=== PATIENT | male | born 1970 | race Hispanic/Latino ===

== ENCOUNTER 2025-05-07 21:01 | Emergency (ER) | payer SELFPAY ==
[~2025-05-07] VITALS: Ht 160 cm; Wt 69.9 kg
[2025-05-07 21:17] VITALS: BP 134/81; PULSE 84; RESP 18; TEMP 98.5; O2SAT 100
--- NOTE | 2025-05-07 23:09 | ERN ---
ED Note History of Present Illness Stated Complaint: C/O HERNIA PROBLEM Chief Complaint: Abdominal Pain Time Seen by MD: 21:19 Time Seen by Midlevel: 21:20 Dictation: 55-year-old male who presents to the emergency department due to reported having history of an umbilical hernia that upon occasions gives him some discomfort. Earlier today, he felt like it was being enlarged. She states that as a 1 hour it went down. Currently, he denies having any fever, chills, nausea, vomiting, abdominal pain or constipation. The patient states that his last bowel movement was 1 hour prior to arrival. Upon initial evaluation, the patient presents in no acute distress. 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: None Past Medical History Past Medical History: Diabetes-Type II, Other Additional Past Medical Hx: HERNIA Surgical History: None Review of System Dictation Constitutional: Negative for fever,chills, and weight loss Eyes: Negative for injury, pain,redness, and discharge ENT: Negative for injury,pain or swelling Cardiovascular: Negative for chest pain, palpitations, and edema Respiratory: Negative for shortness of breath, cough, and wheezing, Abdomen/GI: Negative for abdominal pain, nausea, vomiting, diarrhea, and constipation Back: Negative for injury and pain : Negative for injury, bleeding and discharge MS/Extremity: Negative for injury and deformity Skin: Negative for rash, and discoloration Neuro: Negative for headache, weakness, numbness, tingling, and seizure Psych: Negative for suicide ideation, homicidal ideation, and hallucinations Initial Vital Sign VS Vital Signs Date Time Temp Pulse Resp B/P (MAP) Pulse Ox O2 Delivery O2 Flow Rate FiO2 05/07/25 21:03 98.1 87 20 136/79 98 Room Air 05/07/25 21:17 0 21 Physical Exam Dictation General: awake, alert, NAD Head/Face: Normocephalic, atraumatic Eyes: PERRL, EOMI ENT: Oral mucosa moist Neck: Trachea midline, supple Cardiovascular: RRR, no edema Respiratory: Symmetrical, non-labored Abdomen: Soft, non-tender, non-distended, no guarding, Skin: Warm, dry, good turgor, no rash MS/Extremity: Pulses equal, no cyanosis, neurovascular intact, FROM Neuro: COAx4, GCS 15, steady gait, Psych: Normal behavior, mood, and affect normal ED Course ED Course Vital Signs Date Time Temp Pulse Resp B/P (MAP) Pulse Ox O2 Delivery O2 Flow Rate FiO2 05/07/25 21:17 98.4 84 18 134/81 100 Room Air* 0 21 05/07/25 21:03 98.1 87 20 136/79 98 Room Air Medical Decision Making MDM MDM: Differential diagnosis: Umbilical hernia, incarcerated hernia, abdominal pain. Rationale: Tests considered and ordered secondary to shared decision making include: Previous outside records reviewed: Old ER visits. Risk of complication and/or morbidity or mortality of patient management: None Medications-Per medication reconciliation Need for hospitalization: Patient does not meet criteria for hospitalization. Need for emergency major/minor surgery: No There are no social concerns with this patient. Prescription drug management Prescriptions will include symptomatic care Patient's prior external medical records from other ER visits were reviewed by me as indicated. Prior testing and results from previous visits were reviewed. Prior tests were taken into account with medical decision making and resource utilization, independent historian/historians were used to obtain complete medical history. I independently interpreted the test that were performed, results were reviewed by me and considered findings on radiology if ordered. Medical management and examination interpretation discussions were had by me with other qualified healthcare professionals as indicated for the patient's care. DX & DISP Disposition: Discharge Departure Impression: Primary Impression: Umbilical hernia Condition: Stable Referrals: NONE (PCP) Time of Disposition: 23:08 ZAMZAM AGUILAR May 07, 2025 23:09
== END 2025-05-07 23:14 | disposition home or self-care (01) ==
LOC: EDH 21:01
DX: K42.9 Umbilical hernia without obstruction or gangrene (principal); E11.9 Type 2 diabetes mellitus without complications
CPT/HCPCS: 99282